=== PATIENT | male | born 1955 | race Caucasian/White ===

== ENCOUNTER 2017-03-13 22:41 | Inpatient (IN) | payer OTHER ==
[~2017-03-13] VITALS: Ht 180.3 cm; Wt 80.3 kg
[2017-03-13] MEDS ORDERED: IV SET PRIMARY 1 EA INFUS.SET MC ONE (22:54)
[2017-03-13] MEDS ORDERED: IV NS 0.9% 1,000 ML ONE (22:54)
--- NOTE | 2017-03-13 22:54 | NUR ---
PT [id number] FR HOME FOR SYNCOPAL EPISODE WHILE IN BATHROOM, GIVEN, NS 500ML IVB, BG 112 IN FIELD. PT AO TO NAME, MALAY SPEAKING, RR EVEN AND UNLABORED. NO NVD AT THIS TIME. NO NAD. PT NOT DIAPHORETIC. PT GOWNED AND PLACED ON MONITOR WAITING FOR MD TATE.
[2017-03-13] MEDS ORDERED: IV NS 0.9% 1,000 ML BAG IV ONE (23:00)
--- NOTE | 2017-03-13 23:01 | NUR ---
LAB AT BEDSIDE FOR BLOOD DRAW.
--- NOTE | 2017-03-13 23:04 | NUR ---
DAUGHTER/ AT BEDSIDE. DR. RAUSCH AT BEDSIDE FOR EVAL.
--- NOTE | 2017-03-13 23:12 | NUR ---
PT TO CT.
--- NOTE | 2017-03-13 23:37 | NUR ---
PT RETURNED FROM CT.
[2017-03-13 23:40] LABS: BASOPHILS % (AUTO) 0.3 % (0.0-2.0); EOSINOPHILS # (AUTO) 0.2 /CMM (0.0-0.7); EOSINOPHILS % (AUTO) 1.5 % (0.0-6.0); HEMATOCRIT 40 % (39-51); HEMOGLOBIN 13.2 g/dL (13.5-17.5); LYMPHOCYTES # (AUTO) 4.7 /CMM (0.8-4.8); LYMPHOCYTES % (AUTO) 32.2 % (20.0-44.0); MEAN CORPUSCULAR HEMOGLOBIN 30 PG (26.0-33.0); MEAN CORPUSCULAR HGB CONC 33 g/dl (31.0-36.0); MEAN CORPUSCULAR VOLUME 90 fL (80-96); MONOCYTES # (AUTO) 1.1 /CMM (0.1-1.30); MONOCYTES % (AUTO) 7.5 % (2.0-12.0); NEUTROPHILS # (AUTO) 8.5 /CMM (1.8-8.9); NEUTROPHILS % (AUTO) 58.5 % (43.0-81.0); PLATELET COUNT (AUTO) 369 /CMM (150-450); RDW COEFFICIENT OF VARIATION 13.2 (11.5-15.0); WHITE BLOOD COUNT (AUTO) 14.5 K/uL (4.3-11.0)
[2017-03-13] MEDS ORDERED: ONDANSETRON HCL/PF 4 MG/2 ML VIAL ONE (23:40)
[2017-03-13 23:50] LABS: CALCIUM, SERUM 8.3 mg/dL (8.5-10.1); CARBON DIOXIDE 25 mmol/L (21-32); CHLORIDE 106 mmol/L (98-107); GFR 76 mL/min (>60); GLUCOSE 119 mg/dL (74-106); POTASSIUM 3.1 mmol/L (3.5-5.1); SODIUM SERUM 141 mmol/L (136-145); UREA NITROGEN, BLOOD 20 mg/dL (7-18)
--- NOTE | 2017-03-13 23:51 | NUR ---
PT TO CT FOR CT CHEST.
[2017-03-13 23:55] LABS: INR 0.96 (0.87-1.13); PROTHROMBIN TIME 10.2 SECS (9.5-12.7)
[2017-03-13 23:59] LABS: TROPONIN I < 0.017 ng/mL (0.00-0.056)
[2017-03-14] MEDS ORDERED: ONDANSETRON HCL/PF 4 MG/2 ML VIAL IV ONE
[2017-03-14 00:01] LABS: ALANINE AMINOTRANSFERASE 32 U/L (12-78); ALBUMIN 3.1 g/dL (3.4-5.0); ALKALINE PHOSPHATASE 99 U/L (46-116); ASPARTATE AMINOTRANSFERASE 20 U/L (15-37); BILIRUBIN,DIRECT 0.1 mg/dL (0.0-0.2); BILIRUBIN,TOTAL 0.2 mg/dL (0.2-1.0); TOTAL PROTEIN, SERUM 6.6 g/dL (6.4-8.2)
--- NOTE | 2017-03-14 00:06 | NUR ---
PT RETURNED FROM CT.
[2017-03-14] MEDS ORDERED: AMLO5TAB4 PO (02:27)
[2017-03-14] MEDS ORDERED: [UNRECOGNIZED DRUG - OTHER] PO (02:30)
--- NOTE | 2017-03-14 02:32 | NUR ---
[facility] DR. OSMIN BRADSHAW.
--- NOTE | 2017-03-14 02:33 | NUR ---
PT ASSIGNED TO BED 119
--- NOTE | 2017-03-14 02:40 | NUR ---
REPORT GIVEN TO RN DIONY FOR BED 116-2
[2017-03-14] MEDS ORDERED: ONDANSETRON HCL/PF 4 MG/2 ML VIAL IVP PRN (03:00)
[2017-03-14] MEDS ORDERED: ACETAMINOPHEN 325 MG TABLET PO PRN (03:00)
[2017-03-14] MEDS ORDERED: MORPHINE SULFATE INJ 2 MG/ML DISP.SYRIN IV PRN (03:00)
[2017-03-14] MEDS ORDERED: Z GUARD REMEDY 2 OZ OINT TP PRN (03:00)
[2017-03-14] MEDS ORDERED: ZOLPIDEM TARTRATE 5 MG TABLET PO PRN (03:00)
[2017-03-14] MEDS ORDERED: DIPHENOXYLATE HCL/ATROP SULF 1 UDTAB TABLET PO PRN (03:00)
[2017-03-14] MEDS ORDERED: ENOXAPARIN SODIUM 30 MG/0.3 ML DISP.SYRIN SQ SCH (03:00)
--- NOTE | 2017-03-14 03:05 | NUR ---
RN OPENING NOTES; ADMITTED 61 YO MALE PATIENT FROM ER, PT IS AWAKE ALOX4 AND IS VERBALLY RESPONSIVE, FRISIAN SPEAKING ONLY. PER DAUGHTER AT BEDSIDE PT IS JUST VISITING FROM [facility]. ORIENTED TO UNIT AND BED FUNCTIONS WELL INSTRUCTED ON THE USE OF CALL LIGHT. ATTACHED TO HEART MONITOR, MONITOR REVEALS SR AT 70'S. IV ACCESS ON LAC G18 INTACT. FLUSHED SL AT THIS TIME. SKIN INTACT, DENIES ANY SKIN ISSUES. FAMILY AND PT VERBALIZED FULL CODE STATUS AND HAS NO KNOWN ALLERGIES. ADMITTING ORDERS IN, NOTED AND CARRIED OUT. SAFETY MEASURES ENSURED. CALL LIGHT WITHIN REACH. CONTINUOUSLY MONITORED
--- NOTE | 2017-03-14 03:10 | NUR ---
PT TRASNFERED PER ACLS PROTOCOL.
[2017-03-14] MEDS ORDERED: LEVOFLOXACIN (500MG) 500 MG TABLET ONE (03:11)
[2017-03-14] MEDS: LEVOFLOXACIN (500MG) 500 MG TABLET PO SCH (03:20)
[2017-03-14] MEDS ORDERED: IV PREMIX D5 1/2NS + KCL 1,000 ML IV ONE (03:35)
[2017-03-14] MEDS ORDERED: IV SET PRIMARY PUMP SET 1 EA INFUS.SET MC ONE (03:40)
[2017-03-14] MEDS: Potassium Chloride 40 MEQ in IV D5/0.45 NACL 1,000 ML IV PRN ×3 (03:49→21:01)
[2017-03-14 04:00] VITALS: BP 135/78
[2017-03-14] MEDS ORDERED: METRONIDAZOLE 500 MG TABLET ONE (04:59)
[2017-03-14] MEDS: METRONIDAZOLE 500 MG TABLET PO SCH ×3 (06:00→21:02)
[2017-03-14 06:54] LABS: BASOPHILS % (AUTO) 0.1 % (0.0-2.0); EOSINOPHILS % (AUTO) 0.1 % (0.0-6.0); HEMATOCRIT 41 % (39-51); LYMPHOCYTES % (AUTO) 17.5 % (20.0-44.0); MEAN CORPUSCULAR HEMOGLOBIN 30 PG (26.0-33.0); MEAN CORPUSCULAR HGB CONC 34 g/dl (31.0-36.0); MEAN CORPUSCULAR VOLUME 90 fL (80-96); MONOCYTES # (AUTO) 0.7 /CMM (0.1-1.30); NEUTROPHILS # (AUTO) 8.9 /CMM (1.8-8.9); NEUTROPHILS % (AUTO) 76.3 % (43.0-81.0); PLATELET COUNT (AUTO) 347 /CMM (150-450); RDW COEFFICIENT OF VARIATION 13.4 (11.5-15.0); RED BLOOD CELL COUNT(AUTO) 4.63 MIL/uL (4.5-6.0); WHITE BLOOD COUNT (AUTO) 11.7 K/uL (4.3-11.0)
--- NOTE | 2017-03-14 07:00 | NUR ---
RN NOTES; RECEIVED PT ON BED, A/Ox4, PORTUGUESE SPEAKING ONLY, RESPIRATION EVEN AND UNLABORED, ON RA , ON TEL SR , PT GRAZYNA ANY DISTRESS , L AC IV SITE G 18 CDI, D51/2 NS WITH 40 MEQ POTASSIUM RUNNING WELL , SR UP x3, CALL LIGHT WITHIN EASY REACH, CONTINUE TO MONITOR PT CLOSELY AND NOTIFY MD FOR ANY SIGNIFICANT CHANGES ,
[2017-03-14 07:19] LABS: CALCIUM, SERUM 8.7 mg/dL (8.5-10.1); CREATININE 0.8 mg/dL (0.6-1.3); POTASSIUM 4.3 mmol/L (3.5-5.1)
[2017-03-14 08:00] VITALS: BP 110/69
[2017-03-14 12:00] VITALS: BP 117/69
--- NOTE | 2017-03-14 12:00 | NUR ---
RN NOTES PT AT REST , OOB TO BR , D51/2 NS WITH 40MEQ KCL RUNNING AT 125CC/HR VIA L AC IV SITE , NO DISTRESS NOTED , CONTINUE TO MONITOR
[2017-03-14 16:00] VITALS: BP_SYST 117; BP_DIAS 64; BP_DIAS 69
--- NOTE | 2017-03-14 18:15 | NUR ---
RN NOTES , PT GRAZYNA ANY DISTRESS AT THIS TIME, PT WANTS TO GO HOME , STATED HAS FLIGHT BACK HOME IN AM . DR LR NOTIFIED, D51/2 NS WITH 40MEQ KCL RUNNING AT 125CC/HR VIA L AC IV SITE , PT MEDICATED PER MD ORDER , NO SIGNIFICANT CHANGES NOTED ON THIS SHIFT .
--- NOTE | 2017-03-14 19:30 | NUR ---
RN INITIAL NOTES RECEIVED PATIENT ON BED, A/Ox4, NEPALI SPEAKING, BUT NODS TO UNDERSTANDING OF BASIC JAPANESE. RESPIRATIONS EVEN AND UNLABORED TOLERATING ROOM AIR WELL. ON TELEMETRY MONITORING, REVEALING SR. PATIENT GRAZYNA ANY ACUTE OR RESPIRATORY DISTRESS. L AC IV SITE G 18 CDI, WITH D5 1/2 NS WITH 40 MEQ POTASSIUM RUNNING WELL, FREE FROM ANY S/S OF INFILTRATION OR PHLEBITIS. SR UP x2, CALL LIGHT WITHIN EASY REACH, CONTINUE TO MONITOR PT CLOSELY AND WILL NOTIFY MD FOR ANY SIGNIFICANT CHANGES
[2017-03-14 20:00] VITALS: BP 118/71
[2017-03-15] VITALS: BP 135/70
[2017-03-15 04:00] VITALS: BP 115/76
[2017-03-15] MEDS: METRONIDAZOLE 500 MG TABLET PO SCH (04:00)
[2017-03-15] MEDS: LEVOFLOXACIN (500MG) 500 MG TABLET PO SCH (04:00)
[2017-03-15] MEDS: Potassium Chloride 40 MEQ in IV D5/0.45 NACL 1,000 ML IV PRN (04:01)
--- NOTE | 2017-03-15 06:45 | NUR ---
RN CLOSING NOTES PATIENT RESTING COMFORTABLY IN BED, NO ACUTE CHANGES OVERNIGHT. IV FLUIDS INFUSING WELL. WILL ENDORSE THE PATIENT TO THE AM SHIFT NURSE FOR KATHRYN
[2017-03-15 07:17] LABS: ALBUMIN 3.1 g/dL (3.4-5.0); BILIRUBIN,TOTAL 0.5 mg/dL (0.2-1.0); CALCIUM, SERUM 8.7 mg/dL (8.5-10.1); CREATININE 0.9 mg/dL (0.6-1.3); MAGNESIUM 1.8 mg/dL (1.8-2.4); PHOSPHORUS 2.8 mg/dL (2.5-4.9); POTASSIUM 3.7 mmol/L (3.5-5.1); TOTAL PROTEIN, SERUM 6.9 g/dL (6.4-8.2)
[2017-03-15 07:25] LABS: THYROID STIMULATING HORMONE 1.625 uIU/mL (0.358-3.74)
--- NOTE | 2017-03-15 07:25 | NUR ---
RN INITIAL NOTES PT IN BED, A/O X4, BROKEN [place], MAINLY IRISH, ON RA TOLERATING WELL, DENIES ANY PAIN. ON TELE MONITOR WITH ST 70'S. BRP. SKIN CDI. IV ON LW 20G RUNNING D5 1/2 NS WITH KCL 40 MEQ @ 125 CC/HR, TOLERATING WELL, NO SIGNS OF INFECTION/INFILTRATION. CALL LIGHT WITHIN EASY REACH, SAFETY MEASURES MAINTAINED, WILL CONTINUE TO MONITOR AND FOLLOW MD ORDERS. PT IN OVERALL STABLE CONDITION. PT STATES HE WANTS TO GO HOME.
[2017-03-15 07:31] LABS: BASOPHILS % (AUTO) 0.1 % (0.0-2.0); EOSINOPHILS # (AUTO) 0.1 /CMM (0.0-0.7); EOSINOPHILS % (AUTO) 0.8 % (0.0-6.0); HEMATOCRIT 42 % (39-51); HEMOGLOBIN 13.9 g/dL (13.5-17.5); LYMPHOCYTES # (AUTO) 2.1 /CMM (0.8-4.8); LYMPHOCYTES % (AUTO) 19.3 % (20.0-44.0); MEAN CORPUSCULAR HEMOGLOBIN 30 PG (26.0-33.0); MEAN CORPUSCULAR HGB CONC 33 g/dl (31.0-36.0); MEAN CORPUSCULAR VOLUME 90 fL (80-96); MONOCYTES # (AUTO) 0.9 /CMM (0.1-1.30); MONOCYTES % (AUTO) 8.2 % (2.0-12.0); NEUTROPHILS # (AUTO) 7.9 /CMM (1.8-8.9); NEUTROPHILS % (AUTO) 71.6 % (43.0-81.0); PLATELET COUNT (AUTO) 362 /CMM (150-450); RDW COEFFICIENT OF VARIATION 13.5 (11.5-15.0); RED BLOOD CELL COUNT(AUTO) 4.63 MIL/uL (4.5-6.0)
[2017-03-15 08:00] VITALS: BP 127/69
[2017-03-15] MEDS ORDERED: ENOXAPARIN SODIUM 40 MG/0.4 ML DISP.SYRIN SQ SCH (09:00)
--- NOTE | 2017-03-15 10:00 | NUR ---
RN NOTES PT SEEN BY ANALILIA, DISCHARGE ORDER GIVEN; "Pt to follow up with abnormal CT findings to rule out malignancy in [facility]". PTS DAUGHTER AT BEDSIDE.
[2017-03-15] MEDS ORDERED: METR500T PO (10:30)
[2017-03-15] MEDS ORDERED: LEVO500T15 PO (10:30)
--- NOTE | 2017-03-15 11:48 | NUR ---
RN NOTES WAS UNABLE TO SCAN MEDICATION BUT PT TOOK HIS 1300 [address]YL PRIOR TO BEING DISCHARGED PER PT AND PT'S DAUGHTERS REQUEST.
--- NOTE | 2017-03-15 11:49 | NUR ---
RN CLOSING NOTES REMOVED IV, SKIN CDI, ID BAND, GAVE PRESCRIPTION AND DISCHARGE PACKET TO PT'S DAUGHTER, EXPLAINED TO THEM BOTH THE DISCHARGE ORDERS AND TO GET THE MEDICATIONS FROM THE PHARMACY [facility]. PT IS TO FOLLOW UP WITH PCP REGARDING CXR. PT STATES HE HAS ALL HIS BELONGINGS; FORMED SIGNED. PT REFUSED TO BE WHEELED OUT, PREFERRED TO WALK TO HIS CAR. PT ESCORTED OUT TO CAR IN STABLE CONDITION, ALL MD ORDERS CARRIED OUT.
== END 2017-03-15 11:45 | disposition home or self-care (01) | DRG 372 ==
LOC: EDBD 22:45 → ER 22:45 → TELE1 03-14 02:46 → MEDSG1 03-15 10:58
PROVIDERS: ADMIT Nurse Practitioner Acute Care; ATTEND Family Medicine
DX: A04.9 Bacterial intestinal infection, unspecified (principal); E44.1 Mild protein-calorie malnutrition; J98.11 Atelectasis; D72.829 Elevated white blood cell count, unspecified; F17.210 Nicotine dependence, cigarettes, uncomplicated; E86.0 Dehydration; I25.10 Atherosclerotic heart disease of native coronary artery without angina pectoris; Z95.1 Presence of aortocoronary bypass graft; I10 Essential (primary) hypertension; R73.9 Hyperglycemia, unspecified; I11.9 Hypertensive heart disease without heart failure; E78.5 Hyperlipidemia, unspecified
CPT/HCPCS: 36415; 70450-TC; 71010-TC; 71250-TC; 80048-TC; 80053-TC; 80061-TC; 80076-TC; 82962-TC; 83540-TC; 83735-TC; 84100-TC; 84443-TC; 84484-TC; 85025-TC; 85730-TC; 86850-TC; 87081-TC; 93307-TC; A4606; J1650; J2405; J3480; J3490; J7030; Z7610